=== PATIENT | male | born 1995 | race Caucasian/White ===

== ENCOUNTER → 2024-02-01 06:30 | Day surgery (SDC) | payer BC, SELFPAY | LOC: GI 06:30 | PROVIDERS: ATTENDING PHYSICIAN Internal Medicine | DX: K21.00 Gastro-esophageal reflux disease with esophagitis, without bleeding (principal); K22.89 Other specified disease of esophagus; Z87.19 Personal history of other diseases of the digestive system | CPT/HCPCS: 43239; 88305 ==